=== PATIENT | male | born 1955 | race Caucasian/White ===

== ENCOUNTER 2017-08-19 17:13 | Emergency (ER) | payer BC ==
[~2017-08-19] VITALS: Ht 180.3 cm; Wt 88.2 kg
[2017-08-19 18:04] LABS: HEMATOCRIT 40.3 % (38.0-50.0); HEMOGLOBIN 14.8 G/DL (12.5-16.6); MCH 32.1 PG (29.0-34.0); MCHC 36.7 G/DL (30.0-36.0); MCV 87.4 FL (86-99); PLATELET COUNT 207 K/uL (156-360); RBC DIS.WIDTH-CV 12.5 % (11.8-14.6); RBC DIS.WIDTH-SD 40.1 % (39-53); RED BLOOD COUNT 4.61 M/uL (4.00-5.50); WHITE BLOOD COUNT 17.6 K/uL (4.1-10.2)
[2017-08-19 18:14] LABS: ALBUMIN 3.8 g/dL (3.2-4.8); CHLORIDE 106 mEq/L (99-109); POTASSIUM 3.4 mEq/L (3.7-5.4); SODIUM 139 mEq/L (136-147)
[2017-08-19 18:17] LABS: GLUCOSE 107 mg/dL (70-99)
[2017-08-19 18:18] LABS: TOTAL BILIRUBIN 1.2 mg/dL (0.0-1.0)
[2017-08-19 18:20] LABS: ALKALINE PHOSPHATASE 102 IU/L (3-129); CREATININE 1.2 mg/dL (0.6-1.3); GFR ESTIMATE (CALCULATED) > 59 mL/min/ (58.99-99999)
[2017-08-19 18:21] LABS: UREA NITROGEN (BUN) 26 mg/dL (9-23)
[2017-08-19 18:22] LABS: AST (GOT) 16 IU/L (2-34)
[2017-08-19 18:23] LABS: ALT (GPT) 15 IU/L (3-49)
[2017-08-19 18:24] LABS: LIPASE 24 U/L (1.0-51.0)
[2017-08-19] MEDS ORDERED: ZOFRAN4 MG PO (20:11)
[2017-08-19] MEDS ORDERED: FLAGYL500 MG PO (20:11)
[2017-08-19] MEDS ORDERED: CIPRO500 MG PO (20:11)
[2017-08-19] MEDS ORDERED: PERCOCET 5/31 TABLET PO (20:11)
[2017-08-19 20:23] VITALS: BP 113/76
[2017-08-19 20:24] LABS: APPEARANCE CLEAR ((CLEAR)); BILIRUBIN NEGATIVE; BLOOD NEGATIVE; COLOR YELLOW ((YELLOW)); GLUCOSE (STRIP) NEGATIVE; KETONES NEGATIVE; LEUKOCYTES NEGATIVE; NITRITE NEGATIVE; PROTEIN (STRIP) NEGATIVE; SPECIFIC GRAVITY 1.009 (1.000-1.030); UCUL ADDED? NO; UROBILINOGEN 0.2 MG/DL (0.2-1.0)
== END 2017-08-19 20:24 | disposition home or self-care (01) ==
LOC: EME 17:13
PROVIDERS: Physician Assistant
DX: K57.32 Diverticulitis of large intestine without perforation or abscess without bleeding (principal); I10 Essential (primary) hypertension; Q26.8 Other congenital malformations of great veins; Z85.46 Personal history of malignant neoplasm of prostate; Z90.49 Acquired absence of other specified parts of digestive tract; Z95.9 Presence of cardiac and vascular implant and graft, unspecified
CPT/HCPCS: 74177; 80053; 81003; 83605; 83690; 85027; 99281; 99284; J7030